=== PATIENT | female | born 1980 | race Caucasian/White ===

== ENCOUNTER 2016-12-30 21:18 | Emergency (ER) | payer BC ==
[~2016-12-30 21:18] MED LIST: ATOVAQUONE750 MG/5 M PO; AZITHROMYCIN250 M1 PO; BACTRIM DS1 TAB PO; COL100 PO; DIFLUCAN200 MG PO; LAC PO; LIDOCAINE HCL100 ML PO; MYCLUD PO; NORCO1 TA2 PO; PREDNISOLONE ACE5 ML; PROTONIX40 MG PO; TIVICAY50 MG PO; TRUVADA1 TAB PO; VALCYTE450 MG PO
[2016-12-30 21:58] LABS: UA SPECIFIC GRAVITY >=1.030 (1.005-1.035); microscopic required? YES; urine erythrocyte NEGATIVE (NEGATIVE)
[2016-12-30 22:01] LABS: BASOPHIL % 0.3 % (0-2); PLATELET COUNT 286 x10^3mcL (130-400)
[2016-12-30 22:02] LABS: RED CELL DISTRIBUTION WIDTH 14.7 % (11.5-14.5)
[2016-12-30 22:09] LABS: CALCIUM 8.8 mg/dL (8.5-10.1); CARBON DIOXIDE 25.6 mmol/L (21-32); CHLORIDE SERUM 105 mmol/L (98-107); CREATININE SERUM 0.7 mg/dL (0.6-1.0); GFR1 > 60 mL/min; GLUCOSE SERUM 86 mg/dL (74-106); POTASSIUM SERUM 3.5 mmol/L (3.5-5.1); SODIUM SERUM 142 mmol/L (136-145)
[2016-12-30 22:14] LABS: ALBUMIN 4.1 g/dL (3.4-5.0); ALKALINE PHOSPHATASE 144 U/L (46-116); ALT/SGPT 43 U/L (14-59); AMYLASE 84 U/L (25-115); AST/SGOT 25 U/L (15-37); BILIRUBIN TOTAL 0.71 mg/dL (0.20-1.00); LIPASE 212 IU/L (73-393); TOTAL PROTEIN, SERUM 8.3 g/dL (6.4-8.2)
[2016-12-30 23:08] VITALS: BP 120/79
== END 2016-12-30 23:08 | disposition home or self-care (01) ==
LOC: ED 21:18
PROVIDERS: Emergency Medicine
DX: R10.13 Epigastric pain (principal); R11.10 Vomiting, unspecified; Z91.010 Allergy to peanuts
CPT/HCPCS: J2270; Q0162

== ENCOUNTER 2016-12-31 18:32 | Inpatient (IN) | payer BC ==
[~2016-12-31] VITALS: Ht 160 cm; Wt 67.3 kg
[2016-12-31 19:33] LABS: BASOPHIL % 0.4 % (0-2); PLATELET COUNT 298 x10^3mcL (130-400)
[2016-12-31 19:50] LABS: RED CELL DISTRIBUTION WIDTH 15.2 % (11.5-14.5)
[2016-12-31 19:56] LABS: CARBON DIOXIDE 26.3 mmol/L (21-32); CHLORIDE SERUM 107 mmol/L (98-107); CREATININE SERUM 0.8 mg/dL (0.6-1.0); GFR1 > 60 mL/min; GLUCOSE SERUM 103 mg/dL (74-106); POTASSIUM SERUM 3.6 mmol/L (3.5-5.1); SODIUM SERUM 142 mmol/L (136-145)
[2016-12-31 20:00] LABS: ALBUMIN 4.1 g/dL (3.4-5.0); ALKALINE PHOSPHATASE 155 U/L (46-116); ALT/SGPT 42 U/L (14-59); AST/SGOT 28 U/L (15-37); BILIRUBIN TOTAL 0.8 mg/dL (0.20-1.00)
[2016-12-31 20:01] LABS: TOTAL PROTEIN, SERUM 8.8 g/dL (6.4-8.2)
[2016-12-31 20:29] LABS: UA SPECIFIC GRAVITY >=1.030 (1.005-1.035); microscopic required? YES; urine erythrocyte NEGATIVE (NEGATIVE)
[2016-12-31 20:36] VITALS: BP 113/78
[2016-12-31 21:29] LABS: AMPHETAMINE QUAL UR NONE DETECTED (NEG <=1000)
[2016-12-31 21:30] LABS: FREE T4 1.34 ng/dL (0.76-1.46); FREE THYROXINE INDEX 2.8 ug/dL (1.4-4.5); T4(THYROXINE) 8.3 ug/dL (4.7-13.3)
[2016-12-31 21:36] LABS: T3 TOTAL 1.26 ng/mL
[2016-12-31 22:15] LABS: CHOLESTEROL/HDL RATIO 3.7
[2017-01-01] VITALS: Ht 160 cm; Wt 67.3 kg
[2017-01-01 05:37] VITALS: BP 104/66
[2017-01-01 06:35] LABS: BASOPHIL % 0.6 % (0-2); PLATELET COUNT 273 x10^3mcL (130-400)
[2017-01-01 07:20] LABS: CALCIUM 8.8 mg/dL (8.5-10.1); CARBON DIOXIDE 27.3 mmol/L (21-32); CHLORIDE SERUM 105 mmol/L (98-107); CREATININE SERUM 0.7 mg/dL (0.6-1.0); GFR1 > 60 mL/min; GLUCOSE SERUM 76 mg/dL (74-106); MAGNESIUM 2.1 mg/dL (1.8-2.4); PHOSPHOROUS 3.9 mg/dL (2.5-4.9); POTASSIUM SERUM 3.8 mmol/L (3.5-5.1); SODIUM SERUM 141 mmol/L (136-145)
[2017-01-01 10:40] VITALS: BP 103/62
[2017-01-01 14:43] VITALS: BP 104/63
[2017-01-01 17:49] VITALS: BP 102/53
[2017-01-01 20:11] VITALS: BP 117/82
[2017-01-02 05:34] VITALS: BP 97/64
[2017-01-02 06:54] LABS: CALCIUM 8.4 mg/dL (8.5-10.1); CARBON DIOXIDE 25.4 mmol/L (21-32); CHLORIDE SERUM 107 mmol/L (98-107); CREATININE SERUM 0.6 mg/dL (0.6-1.0); GFR1 > 60 mL/min; GLUCOSE SERUM 75 mg/dL (74-106); POTASSIUM SERUM 3.6 mmol/L (3.5-5.1); SODIUM SERUM 142 mmol/L (136-145)
[2017-01-02 07:01] LABS: BASOPHIL % 0.6 % (0-2); PLATELET COUNT 237 x10^3mcL (130-400)
[2017-01-02 07:18] LABS: RED CELL DISTRIBUTION WIDTH 14.6 % (11.5-14.5)
[2017-01-02 09:13] VITALS: BP 121/77
[2017-01-02 17:26] VITALS: BP 118/65
[2017-01-02 22:02] VITALS: BP 112/62
[2017-01-03 05:30] VITALS: BP 135/55
[2017-01-03 06:35] LABS: BASOPHIL % 0.5 % (0-2); PLATELET COUNT 218 x10^3mcL (130-400); RED CELL DISTRIBUTION WIDTH 14.5 % (11.5-14.5)
[2017-01-03 06:41] LABS: CARBON DIOXIDE 26.8 mmol/L (21-32); CHLORIDE SERUM 106 mmol/L (98-107); CREATININE SERUM 0.6 mg/dL (0.6-1.0); GFR1 > 60 mL/min; GLUCOSE SERUM 118 mg/dL (74-106); POTASSIUM SERUM 3.3 mmol/L (3.5-5.1); SODIUM SERUM 143 mmol/L (136-145)
[2017-01-03 10:07] VITALS: BP 115/65
[2017-01-03 11:17] VITALS: BP 115/65
[2017-01-03] MEDS ORDERED: LAC PO (12:35)
[2017-01-03] MEDS ORDERED: CIPRO250 MG PO (12:35)
[2017-01-03] MEDS ORDERED: MYCLUD PO (12:38)
== END 2017-01-03 15:10 | disposition home or self-care (01) | DRG 391 ==
LOC: ED 18:32 → MU 19:26 → DU 19:26 → MU 01-01 17:43
PROVIDERS: Emergency Medicine; Internal Medicine Gastroenterology; ADMIT Family Medicine
PROC: 0D738ZZ Dilation of Lower Esophagus, Via Natural or Artificial Opening Endoscopic (ICD-10-PCS; principal; 2017-01-01 09:00)
PROC: 0DC38ZZ Extirpation of Matter from Lower Esophagus, Via Natural or Artificial Opening Endoscopic (ICD-10-PCS; 2017-01-02)
PROC: 0DB58ZX Excision of Esophagus, Via Natural or Artificial Opening Endoscopic, Diagnostic (ICD-10-PCS; 2017-01-02 12:00)
DX: K22.2 Esophageal obstruction (principal); B20 Human immunodeficiency virus [HIV] disease; N17.0 Acute kidney failure with tubular necrosis; N39.0 Urinary tract infection, site not specified; K21.9 Gastro-esophageal reflux disease without esophagitis; I16.0 Hypertensive urgency; Z53.29 Procedure and treatment not carried out because of patient's decision for other reasons; Z68.26 Body mass index [BMI] 26.0-26.9, adult; Z79.899 Other long term (current) drug therapy; Z90.49 Acquired absence of other specified parts of digestive tract; Z82.49 Family history of ischemic heart disease and other diseases of the circulatory system
CPT/HCPCS: 43235; 43239; 80307; 83880; 84439; C1769; C9113; J0696; J1200; J1610; J2250; J2270; J2310; J2405; J2550; J3010; J3360; J3490; J7030; Q9967

== ENCOUNTER 2017-04-06 13:49 | Emergency (ER) | payer BC ==
[~2017-04-06 13:49] MED LIST changes: +CIPRO250 MG PO
[2017-04-06 16:44] LABS: BASOPHIL % 0.1 % (0-2); PLATELET COUNT 231 x10^3mcL (130-400); RED CELL DISTRIBUTION WIDTH 14.4 % (11.5-14.5)
[2017-04-06 16:51] LABS: CALCIUM 8.4 mg/dL (8.5-10.1); CARBON DIOXIDE 25.8 mmol/L (21-32); CHLORIDE SERUM 101 mmol/L (98-107); CREATININE SERUM 0.7 mg/dL (0.6-1.0); GFR1 > 60 mL/min; GLUCOSE SERUM 100 mg/dL (74-106); POTASSIUM SERUM 3.6 mmol/L (3.5-5.1); SODIUM SERUM 138 mmol/L (136-145)
[2017-04-06 16:58] LABS: ALBUMIN 3.4 g/dL (3.4-5.0); ALKALINE PHOSPHATASE 141 U/L (46-116); ALT/SGPT 81 U/L (14-59); AMYLASE 60 U/L (25-115); AST/SGOT 56 U/L (15-37); CHOLESTEROL 166 mg/dL (<200); HDL CHOLESTEROL 55 mg/dL (40-60); LIPASE 184 IU/L (73-393)
[2017-04-06 17:09] LABS: microscopic required? YES; urine erythrocyte 1+ (NEGATIVE)
[2017-04-06 17:20] LABS: AMPHETAMINE QUAL UR NONE DETECTED (NEG <=1000)
[2017-04-06 19:36] VITALS: BP 121/71
== END 2017-04-06 19:36 | disposition home or self-care (01) ==
LOC: ED 13:49
PROVIDERS: Emergency Medicine
DX: R07.9 Chest pain, unspecified (principal); R10.13 Epigastric pain; I45.10 Unspecified right bundle-branch block; K21.9 Gastro-esophageal reflux disease without esophagitis; Z91.010 Allergy to peanuts
CPT/HCPCS: 83880; J3490

== ENCOUNTER 2017-06-21 16:52 | Inpatient (IN) | payer BC ==
[~2017-06-21] VITALS: Ht 160 cm; Wt 72.3 kg
[2017-06-21 18:22] LABS: BASOPHIL % 0.7 % (0-2); PLATELET COUNT 295 x10^3mcL (130-400)
[2017-06-21 18:32] LABS: CALCIUM 8.8 mg/dL (8.5-10.1); CARBON DIOXIDE 28.1 mmol/L (21-32); CHLORIDE SERUM 105 mmol/L (98-107); CREATININE SERUM 0.7 mg/dL (0.6-1.0); GFR1 > 60 mL/min; GLUCOSE SERUM 85 mg/dL (74-106); POTASSIUM SERUM 3.5 mmol/L (3.5-5.1); SODIUM SERUM 139 mmol/L (136-145)
[2017-06-21 18:36] LABS: ALBUMIN 3.8 g/dL (3.4-5.0); ALKALINE PHOSPHATASE 117 U/L (46-116); ALT/SGPT 31 U/L (14-59); AST/SGOT 23 U/L (15-37); BILIRUBIN TOTAL 0.68 mg/dL (0.20-1.00); LIPASE 226 IU/L (73-393); TOTAL PROTEIN, SERUM 8.6 g/dL (6.4-8.2)
[2017-06-21 20:31] LABS: FREE T4 1.38 ng/dL (0.76-1.46); FREE THYROXINE INDEX 2.9 ug/dL (1.4-4.5); T3 TOTAL 1.17 ng/mL; T4(THYROXINE) 8.4 ug/dL (4.7-13.3)
[2017-06-21 20:32] LABS: UA SPECIFIC GRAVITY 1.025 (1.005-1.035); microscopic required? YES; urine erythrocyte 3+ (NEGATIVE)
[2017-06-21 20:48] VITALS: BP 111/52
[2017-06-22 05:09] VITALS: BP 94/45
[2017-06-22 06:19] LABS: BASOPHIL % 0.4 % (0-2); PLATELET COUNT 243 x10^3mcL (130-400)
[2017-06-22 06:51] LABS: CARBON DIOXIDE 23.4 mmol/L (21-32); CHLORIDE SERUM 109 mmol/L (98-107); CHOLESTEROL 132 mg/dL (<200); CHOLESTEROL/HDL RATIO 4.4; CREATININE SERUM 0.7 mg/dL (0.6-1.0); GFR1 > 60 mL/min; GLUCOSE SERUM 76 mg/dL (74-106); HDL CHOLESTEROL 30 mg/dL (40-60); PHOSPHOROUS 3.1 mg/dL (2.5-4.9); POTASSIUM SERUM 3.6 mmol/L (3.5-5.1); SODIUM SERUM 140 mmol/L (136-145); TRIGLYCERIDES 110 mg/dL (<150)
[2017-06-22 08:47] VITALS: BP 100/48
[2017-06-22 12:20] VITALS: BP 108/47
[2017-06-22 17:10] VITALS: BP 105/63
[2017-06-22 20:25] VITALS: BP 107/57
[2017-06-23 05:23] VITALS: BP 96/49
[2017-06-23 08:56] VITALS: BP 93/50
[2017-06-23 09:17] LABS: MAGNESIUM 1.7 mg/dL (1.8-2.4); PHOSPHOROUS 3.3 mg/dL (2.5-4.9)
[2017-06-23 09:21] LABS: BASOPHIL % 0.6 % (0-2); PLATELET COUNT 268 x10^3mcL (130-400)
[2017-06-23] MEDS ORDERED: PROTONIX40 MG PO (11:50)
[2017-06-23] MEDS ORDERED: LEVAQUIN500 M1 PO (11:51)
[2017-06-23] MEDS ORDERED: LAC PO (11:52)
[2017-06-23 14:01] VITALS: BP 96/56
== END 2017-06-23 15:00 | disposition home or self-care (01) | DRG 391 ==
LOC: ED 16:52 → DU 19:20
PROVIDERS: Emergency Medicine; Internal Medicine Gastroenterology; ADMIT Family Medicine
PROC: 0D758ZZ Dilation of Esophagus, Via Natural or Artificial Opening Endoscopic (ICD-10-PCS; principal; 2017-06-23 09:30)
DX: K22.2 Esophageal obstruction (principal); B20 Human immunodeficiency virus [HIV] disease; N17.0 Acute kidney failure with tubular necrosis; N39.0 Urinary tract infection, site not specified; K21.9 Gastro-esophageal reflux disease without esophagitis; Z90.49 Acquired absence of other specified parts of digestive tract; R13.10 Dysphagia, unspecified; R31.9 Hematuria, unspecified; E83.42 Hypomagnesemia; E83.51 Hypocalcemia; E87.8 Other disorders of electrolyte and fluid balance, not elsewhere classified
CPT/HCPCS: 43235; 84439; J0696; J1200; J1610; J1885; J2250; J2270; J2310; J2405; J3010; J3475; J3490; J7030; J7042

== ENCOUNTER 2017-12-31 08:24 | Emergency (ER) | payer BC ==
[~2017-12-31] VITALS: Ht 160 cm; Wt 75.7 kg
[~2017-12-31 08:24] MED LIST changes: +LEVAQUIN500 M1 PO
[2017-12-31 08:35] VITALS: Ht 160 cm; Wt 75.7 kg
[2017-12-31 11:32] LABS: BASOPHIL % 0.2 % (0-2); PLATELET COUNT 218 x10^3mcL (130-400); RED CELL DISTRIBUTION WIDTH 13.9 % (11.5-14.5)
[2017-12-31 11:39] LABS: CALCIUM 8.4 mg/dL (8.5-10.1); CARBON DIOXIDE 30.9 mmol/L (21-32); CHLORIDE SERUM 103 mmol/L (98-107); CREATININE SERUM 0.7 mg/dL (0.6-1.0); GFR1 > 60 mL/min; GLUCOSE SERUM 117 mg/dL (74-106); POTASSIUM SERUM 3.6 mmol/L (3.5-5.1); SODIUM SERUM 138 mmol/L (136-145)
[2017-12-31 11:44] LABS: ALBUMIN 3.9 g/dL (3.4-5.0); ALKALINE PHOSPHATASE 123 U/L (46-116); ALT/SGPT 64 U/L (14-59); AST/SGOT 39 U/L (15-37); BILIRUBIN TOTAL 0.4 mg/dL (0.20-1.00); HDL CHOLESTEROL 40 mg/dL (40-60); LIPASE 260 IU/L (73-393); TRIGLYCERIDES 73 mg/dL (<150)
[2017-12-31 11:47] LABS: CHOLESTEROL 131 mg/dL (<200); CHOLESTEROL/HDL RATIO 3.3; TOTAL PROTEIN, SERUM 8.5 g/dL (6.4-8.2)
[2017-12-31 11:51] LABS: FREE T4 1.2 ng/dL (0.76-1.46); FREE THYROXINE INDEX 2.2 ug/dL (1.4-4.5); T4(THYROXINE) 7.2 ug/dL (4.7-13.3)
[2017-12-31 12:03] LABS: T3 TOTAL 0.83 ng/mL
[2017-12-31 12:04] LABS: UA SPECIFIC GRAVITY 1.025 (1.005-1.035); microscopic required? YES; urine erythrocyte NEGATIVE (NEGATIVE)
[2017-12-31 13:20] VITALS: BP 122/67
== END 2017-12-31 13:20 | disposition home or self-care (01) ==
LOC: ED 08:24
PROVIDERS: Specialist
DX: J10.1 Influenza due to other identified influenza virus with other respiratory manifestations (principal); Z91.010 Allergy to peanuts; Z90.49 Acquired absence of other specified parts of digestive tract
CPT/HCPCS: 83880; 84439; 87804; J1885; J7030; Q0092

== ENCOUNTER 2019-11-07 16:21 | Emergency (ER) | payer BC ==
[~2019-11-07] VITALS: Ht 160 cm; Wt 79.4 kg
[2019-11-07 16:35] VITALS: Ht 160 cm; Wt 79.4 kg
[2019-11-07 17:24] LABS: PLATELET COUNT 233 x10^3mcL (130-400); RED CELL DISTRIBUTION WIDTH 12.5 % (11.5-14.5)
[2019-11-07 17:36] LABS: CALCIUM 8.2 mg/dL (8.5-10.1); CHLORIDE SERUM 102 mmol/L (98-107); CREATININE SERUM 0.7 mg/dL (0.6-1.0); GFR1 > 60 mL/min; GLUCOSE SERUM 94 mg/dL (74-106); SODIUM SERUM 140 mmol/L (136-145)
[2019-11-07 17:40] LABS: ALBUMIN 3.9 g/dL (3.4-5.0); ALKALINE PHOSPHATASE 100 U/L (46-116); ALT/SGPT 66 U/L (14-59); AST/SGOT 40 U/L (15-37); BILIRUBIN TOTAL 0.4 mg/dL (0.20-1.00); CHOLESTEROL 183 mg/dL (<200); HDL CHOLESTEROL 38 mg/dL (40-60); TOTAL PROTEIN, SERUM 8.6 g/dL (6.4-8.2)
[2019-11-07 17:47] LABS: microscopic required? YES; urine erythrocyte TRACE (NEGATIVE)
[2019-11-07 17:59] LABS: BAND NEUTROPHIL 0 % (0-10); BASOPHIL 0 % (0-2); MONOCYTE 14 % (0-7); SEGMENTED NEUTROPHILS 37 % (37-75); rbc morphology (normal/abnorm) NORMAL (NORMAL)
[2019-11-07 20:00] VITALS: BP 111/71
== END 2019-11-07 20:00 | disposition home or self-care (01) ==
LOC: ED 16:21
PROVIDERS: Emergency Medicine
DX: J10.1 Influenza due to other identified influenza virus with other respiratory manifestations (principal); K21.9 Gastro-esophageal reflux disease without esophagitis; Z90.49 Acquired absence of other specified parts of digestive tract; Z98.890 Other specified postprocedural states; Z91.010 Allergy to peanuts
CPT/HCPCS: 87804; J1885; J7030; Q0092